=== PATIENT | male | born 1980 | race Caucasian/White ===

== ENCOUNTER → 2020-09-03 | Outpatient (CLI) | payer OTHER ==
--- NOTE | 2020-09-07 11:27 | SLEEPHOME ---
DATE: 09/03/2020 ORDERED BY: Juan Mills MD Diagnostic home sleep testing was performed due to concern for the obstructive sleep apnea syndrome. For testing, a nocturnal T3 respiratory monitoring device was used. Continuous record was made of pulse, oxygen saturation, air flow, chest and abdominal strain, and body position. Eleven hours and 59 minutes of data were reviewed. There were 6 hours and 50 minutes marked as time in bed. During the interval marked time in bed, there were 36 respiratory events identified of 10 seconds in duration or greater for a respiratory event index of 5.3. The events were more frequently obstructive. Baseline pulse rate 69. Pulse rate ranged 50 to 115. Baseline saturation was 94%. Saturations fell briefly to 89% and testing was performed in both the supine and nonsupine positions. Respiratory events were more frequent in the supine posture. IMPRESSION: Abnormal home sleep testing with repetitive respiratory events and oxygen desaturations to 89% with a respiratory event index of 5.3 is consistent with the obstructive sleep apnea syndrome. RECOMMENDATION: Sleep position retraining for avoidance of the supine posture may be sufficient. Should the patient's symptoms persist referral for a formal sleep evaluation would be indicated. %%CCLIST%%
== END ==
LOC: M SLEEP HO 10:45
PROVIDERS: ATTEND Internal Medicine Cardiovascular Disease
DX: G47.30 Sleep apnea, unspecified (principal)

== ENCOUNTER → 2020-09-30 | Outpatient (CLI) | payer OTHER ==
[~2020-09-30] MED LIST: ATEN25TA PO
== END ==
LOC: M LABSMTC 12:26
PROVIDERS: ATTEND Anesthesiology
DX: Z01.812 Encounter for preprocedural laboratory examination (principal); Z20.822 Contact with and (suspected) exposure to COVID-19

== ENCOUNTER 2020-10-05 13:29 | Day surgery (SDC) | payer OTHER ==
[~2020-10-05] VITALS: Ht 193 cm; Wt 109.7 kg
[~2020-10-05 13:29] MED LIST changes: +LIDOCAINE 1% MDV 20ML VIAL SQ PRN; +LR 1,000 ML IV ONE; +ceFAZolin SOD 1 GM in D5W MINI-BAG PLUS 50 ML IV ONE
[2020-10-05] MEDS ORDERED: LIDOCAINE 1% MDV 20ML VIAL As Ordered ONE (14:43)
[2020-10-05] MEDS ORDERED: propofoL 200 MG/20 ML VIAL As Ordered ONE (14:48)
[2020-10-05] MEDS ORDERED: LIDOCAINE 2% 100MG/5ML SDV (FOR ANES.) As Ordered ONE (14:48)
[2020-10-05] MEDS ORDERED: MIDAZOLAM INJ 2MG/2ML VIAL (J2250 PER 1MG) As Ordered ONE (14:49)
[2020-10-05] MEDS ORDERED: fentaNYL 100 MCG/2 ML INJECTION (J3010) As Ordered ONE (14:49)
[2020-10-05] MEDS ORDERED: ONDANSETRON 4MG/2ML VIAL As Ordered ONE (14:50)
[2020-10-05] MEDS ORDERED: dexameTHASONE 4 MG/ML 1ML VIAL (J1100 PER 1MG) As Ordered ONE (14:50)
[2020-10-05] MEDS ORDERED: KETOROLAC 60MG 2ML VIAL As Ordered ONE (15:08)
[2020-10-05 17:00] VITALS: BP 137/83
--- NOTE | 2020-10-05 20:52 | RO ---
OPERATIVE NOTE DATE OF OPERATION: 10/05/2020 PRE-PROCEDURE DIAGNOSIS: Palpitations. POST-PROCEDURE DIAGNOSIS: Palpitations. FINDINGS: Palpitations. PROCEDURE PERFORMED: Implantation of [employer]onic LINQ II subcutaneous cardiac rhythm monitor. SURGEON: Mitchell Jacobs M.D. RUBBER CUTTER: None. ANESTHESIA: Lidocaine 1% local/monitored anesthetic care. SPECIMENS: None. ESTIMATED BLOOD LOSS: Less than 2 mL. BLOOD PRODUCTS: No blood products were placed. DRAINS: None. COMPLICATIONS: None. PROCEDURE DESCRIPTION: The patient was prepped and draped over the left anterior chest. Lidocaine 1% was used for local anesthetic. An incision approximately 1 cm in length was made with a #15 blade through the skin at the left fourth interspace, about 1 inch lateral to the left parasternal border. I was careful not to make the incision through the patient's tattoo. The guide on the insertion tool was then placed into the incision and advanced in a left lateral-caudal direction parallel to the anterior chest wall. The insertion tool was rotated 180 degrees and then the construction person was used to advance the loop recorder into the subcutaneous tissue. The punch was removed and then the insertion tool was removed leaving the loop recorder in situ. The skin was then approximated temporarily using a 4-0 Biosyn suture with the free end of the suture on both sides protruding 1 cm from either end of the incision through the skin. Next, three layers of Dermabond was applied. The Biosyn suture was then pulled through the incision line and removed entirely. The patient tolerated the procedure well without any immediate complications. The subcutaneous cardiac rhythm monitor implanted was a Phantom Reveal LINQ II model LNQ11 with serial number [id number].
== END 2020-10-05 17:07 | disposition home or self-care (01) ==
LOC: M SDC 13:29
PROVIDERS: ATTEND Internal Medicine Cardiovascular Disease
DX: R00.2 Palpitations (principal); I10 Essential (primary) hypertension; R07.89 Other chest pain; Z79.899 Other long term (current) drug therapy
CPT/HCPCS: 33285; C1764; J0690; J1100; J1885; J2250; J2405; J3010

== ENCOUNTER → 2021-07-13 | Outpatient (CLI) | payer OTHER ==
[~2021-07-13] MED LIST changes: -LIDOCAINE 1% MDV 20ML VIAL SQ PRN; -LR 1,000 ML IV ONE; -ceFAZolin SOD 1 GM in D5W MINI-BAG PLUS 50 ML IV ONE
== END ==
LOC: M CARPUL 14:11
DX: Z00.00 Encounter for general adult medical examination without abnormal findings (principal)

== ENCOUNTER → 2021-09-06 | Outpatient (REF) | LOC: M PLAIMG 15:16 | PROVIDERS: ATTEND Internal Medicine | DX: R06.02 Shortness of breath (principal); M25.512 Pain in left shoulder ==